=== PATIENT | female | born 1955 | race Caucasian/White ===

== ENCOUNTER 2021-06-24 07:55 | Emergency (ER) | payer OTHER ==
--- OUTSIDE RECORDS SUMMARY | 2021-06-24 07:58 | XMS REPORT | Continuity of Care Document ---
:1955 Author Organization [facility] t Address [address] [place] [address] Dr. Garcia [address] [place] [id number] Care Team Providers Name Role Phone Unavailable Unavailable Unavailable Problems This patient has no known problems. Allergies, Adverse Reactions, Alerts This patient has no known allergies or adverse reactions. Medications This patient has no known medications. Procedures This patient has no known procedures. Results This patient has no known results.
[2021-06-24 08:56] LABS: Absolute Lymphocytes (CBC) 1.3 K/uL (0.7-4.9); Basophils % 0.6 % (0-1.3); Hematocrit 38.3 % (36.0-45.0); Lymphocytes % 14.7 % (15.3-44.8); MPV 7.5 fL (7.6-11.3); RBC Red Blood Cell Count 4.39 M/uL (3.86-4.86)
--- NOTE | 2021-06-24 09:19 | RAD REPORT ---
EXAM DESCRIPTION: RAD - Hip Left 2 View - 06/24/2021 9:11 am CLINICAL HISTORY: Left hip pain FINDINGS: No fracture or dislocation is seen. If the patient continues have symptoms to suggest an occult fracture MRI would be recommended
[2021-06-24 09:21] LABS: Albumin 3.6 g/dL (3.4-5.0); Bilirubin Total 0.5 mg/dL (0.2-1.0); Potassium 3.7 mmol/L (3.5-5.1); Protein, Total 7.7 g/dL (6.4-8.2)
[2021-06-24] MEDS ORDERED: MORPHINE 4 MG/ML SYR ONE (09:29)
[2021-06-24] MEDS ORDERED: NA CHLORIDE 0.9% 500 ML ONE (09:29)
[2021-06-24] MEDS ORDERED: ONDANSETRON 4 MG/2 ML VIAL ONE (09:29)
--- NOTE | 2021-06-24 11:57 | RAD REPORT ---
EXAM DESCRIPTION: CT - Pelvis Wo Cont - 06/24/2021 11:29 am CLINICAL HISTORY: Left hip pain status post fall COMPARISON: June 24, 2021 x-ray TECHNIQUE: Computed axial tomography of the pelvis was obtained. Coronal and sagittal reconstruction performed All CT scans are performed using dose optimization technique as appropriate and may include automated exposure control or mA/KV adjustment according to patient size. FINDINGS: Nondisplaced fracture left inferior pubic ramus. Nondisplaced fracture left superior pubic ramus near acetabulum No dislocation No significant hip joint effusion IMPRESSION: Nondisplaced fracture left inferior pubic ramus. Nondisplaced fracture left superior pubic ramus near acetabulum
--- NOTE | 2021-06-24 12:34 | EDPHYS ---
Physician Documentation [facility] Name: Mago Marrufo Age: 65 yrs Sex: Female : 1955 Arrival Date: 06/24/2021 Time: 08:10 Bed 20 Private MD: ED Physician Bhavik Hogan HPI: 06/24 08:25 This 65 yrs old Female presents to ER via EMS with complaints of Fall Injury, pm1 Hip Pain. 08:25 Details of fall: The patient fell from an upright position, while standing, On top of a pm1 5 gallon bucket, and struck a concrete surface. Onset: The symptoms/episode began/occurred 4 hour(s) ago. Associated injuries: The patient sustained Left hip, painful injury. Severity of symptoms: in the emergency department the symptoms are unchanged. The patient has not experienced similar symptoms in the past. The patient has not recently seen a physician. Patient was standing on top of a 5 gallon bucket in the garage and fell onto her left hip. Patient reports inability to stand up after the fall due to the left hip pain. No headache, head injury, neck pain, or LOC. Patient reports having to crawl on the floor for about 4 hours until she was able to get to a phone to call the EMS for help. - Code Status:: Full code. - Family history: is not pertinent. - Immunization history:: Adult Immunizations up to date. - Immunization history: Last tetanus immunization: - up to date. - Social history:: Smoking status: Patient/guardian denies using tobacco, the patient reports quitting approximately 8 years ago. - Social history: Denies using street drugs, IV drugs, tobacco products, alcohol. ROS: 08:25 Constitutional: Negative for fever, chills, and weight loss, Cardiovascular: Negative pm1 for chest pain, palpitations, and edema, Respiratory: Negative for shortness of breath, cough, wheezing, and pleuritic chest pain, Abdomen/GI: Negative for abdominal pain, nausea, vomiting, diarrhea, and constipation, Back: Negative for injury and pain. 08:25 Skin: Negative for injury, rash, and discoloration, Neuro: Negative for headache, weakness, numbness, tingling, and seizure. 08:25 MS/extremity: Positive for pain, of the left hip and left inner thigh, Negative for deformity. 08:25 All other systems are negative. Exam: 08:25 Constitutional: This is a well developed, well nourished patient who is awake, alert, pm1 and in no acute distress. Head/Face: Normocephalic, atraumatic. 08:25 Back: No spinal tenderness. No costovertebral tenderness. Full range of motion. Skin: Warm, dry with normal turgor. Normal color with no rashes, no lesions, and no evidence of cellulitis. 08:25 Eyes: Exam is negative for acute changes, Extraocular movements: intact throughout, Sclera: no acute changes, icterus, is not appreciated. 08:25 ENT: External ear(s): are unremarkable, Ear canal(s): no acute changes, TM's: no acute changes. 08:25 Neck: External neck: no acute changes, C-spine: vertebral tenderness, is not appreciated, ROM/movement: no acute changes. 08:25 Chest/axilla: Inspection: normal, Palpation: is normal, no crepitus, no tenderness. 08:25 Cardiovascular: Rate: normal, Rhythm: regular, Pulses: no pulse deficits are appreciated. 08:25 Respiratory: Exam negative for acute changes, respiratory distress, shortness of breath, Breath sounds: are clear throughout. 08:25 Musculoskeletal/extremity: Extremities: grossly normal except: noted in the Left inguinal area and left lateral hip: pain, tenderness, There is no evidence of decreased ROM, deformity, Pulses: noted to be 2+ in the right dorsalis pedis artery and left dorsalis pedis artery, the left foot Sensation intact. 08:25 Neuro: Exam negative for acute changes, Orientation: is normal, Mentation: is normal, Motor: is normal, moves all fours, Sensation: is normal, no obvious gross deficits. Vital Signs: 08:18 BP 140 / 67; Pulse 85; Resp 16; Temp 97.4; Pulse Ox 100% on R/A; jb4 10:30 BP 107 / 60; Pulse 70; Resp 20; Pulse Ox 99% on R/A; kh1 [place]laly Coma Score: 08:15 Eye Response: spontaneous(4). Verbal Response: oriented(5). Motor Response: obeys jb4 commands(6). Total: 15. Trauma Score (Adult): 08:15 Eye Response: spontaneous(1); Verbal Response: oriented(1); Motor Response: obeys jb4 commands(2); Systolic BP: > 89 mm Hg(4); Respiratory Rate: 10 to 29 per min(4); Citlaly Score: 15; Trauma Score: 12 MDM: 08:11 Patient medically screened. pm1 10:55 ED course: Patient with passive range of motion intact to left hip with pain. Patient pm1 does not feel she would be able to apply weight on left leg, therefore will order CT left hip to rule out occult fracture by x-ray. 12:08 Data reviewed: radiologic studies, CT scan, I have discussed the patient's pm1 presentation/case with the attending Emergency Department Physician; and as a result, I will Stable fracture therefore will discuss with patient the results for discharge or admission. Will trial patient with walker or crutches per patient preference. 12:30 ED course: Patient able to ambulate with walker. Patient does not want to stay in pm1 hospital and would prefer to go home. Since patient is able to ambulate with walker will discharge the patient home for follow-up with Orthopedics. 12:37 ED course: BRAKE OPERATOR HEAVY DUTY aware reviewed. pm1 04 08:20 Order name: CBC with Diff; Complete Time: 09:29 pm1 06/24 08:20 Order name: CMP; Complete Time: 09:29 pm1 06/24 08:20 Order name: CPK; Complete Time: 09:29 pm1 06/24 08:20 Order name: Hip Left 2 View XRAY; Complete Time: 09:29 pm1 06/24 10:55 Order name: Pelvis Wo Cont; Complete Time: 11:58 EDMS 06/24 08:20 Order name: IV Saline Lock; Complete Time: 09:17 pm1 06/24 13:20 Order name: Misc. Order: Walker pm1 Administered Medications: 09:16 Drug: NS 0.9% 500 ml Volume: 500 ml; Route: IV; Rate: 1 bolus; Site: right antecubital; jb4 09:17 Drug: morphine 4 mg Route: IVP; Site: right antecubital; jb4 09:17 Drug: Zofran (Ondansetron) 4 mg Route: IVP; Site: right antecubital; jb4 12:40 Drug: morphine 2 mg Route: IVP; Site: right forearm; kh1 Disposition Summary: 06/24/21 12:33 Discharge Ordered Location: Home pm1 Problem: new pm1 Symptoms: have improved pm1 Condition: Stable pm1 Diagnosis - Nondisplaced fracture of left inferior pubic ramus pm1 - Nondisplaced fracture left superior pubic ramus pm1 Followup: pm1 - With: Emergency Department - When: As needed - Reason: Worsening of condition Followup: pm1 - With: Private Physician - When: 2 - 3 days - Reason: Recheck today's complaints, Continuance of care, Re-evaluation by your physician Discharge Instructions: - Discharge Summary Sheet pm1 - Fall Prevention in the Home, Adult pm1 - Simple Pelvic Fracture, Adult pm1 Forms: - Medication Reconciliation Form pm1 - Thank You Letter pm1 - Antibiotic Education pm1 - Prescription Opioid Use pm1 Prescriptions: - acetaminophen-codeine 300-15 mg Oral tablet - take 1 tablet by ORAL route every 6 hours As needed; 20 tablet; Refills: 0, pm1 Product Selection Permitted Addendum: 06/26/2021 15:09 Co-signature as Attending Physician, Bhavik Hogan MD I agree with the assessment and c torres plan of care. Signatures: Dispatcher [employer] EDBhavik Mason MD MD cha Marinas, Patrick, HUMAN RESOURCES ANALYST HUMAN RESOURCES ANALYST pm1 Vivek Saez, GABRIELLE RN Sofy Caldwell formerly [facility] Corrections: (The following items were deleted from the chart) 06/24 10:55 10:51 CT LEFT HIP WO CONTRAST ordered. EDAL EDAL
--- NOTE | 2021-06-24 12:34 | ER ---
Nurse's Notes [facility] Name: Mago Marrufo Age: 65 yrs Sex: Female : 1955 Arrival Date: 06/24/2021 Time: 08:10 Bed 20 Private MD: Diagnosis: Nondisplaced fracture of left inferior pubic ramus;Nondisplaced fracture left superior pubic ramus Presentation: 06/24 08:10 Chief complaint: Patient states: fell last night about 2300. states was not able to jb4 bear weight on left side denies hitting head. denies loc. c/o left hip pain no deformity noted. Care prior to arrival: None. Mechanism of Injury: Fall from standing position. 08:10 Acuity: PAGE 4 jb4 08:10 Method Of Arrival: EMS: [facility] jb4 08:22 Coronavirus screen: Vaccine status: Patient reports receiving the 2nd dose of the covid jb4 vaccine. 3 months ago Client denies travel out of the [place] in the last 14 days. Ebola Screen: No symptoms or risks identified at this time. Initial Sepsis Screen: Does the patient meet any 2 criteria? No. Patient's initial sepsis screen is negative. Risk Assessment: Do you want to hurt yourself or someone else? Patient reports no desire to harm self or others. 09:04 Acuity: PAGE 3 iw 13:30 Initial Sepsis Screen: Does the patient have a suspected source of infection? No. kh1 Patient's initial sepsis screen is negative. Triage Assessment: 08:22 General: Appears in no apparent distress. jb4 - Code Status:: Full code. - Family history: is not pertinent. - Immunization history:: Adult Immunizations up to date. - Immunization history: Last tetanus immunization: - up to date. - Social history:: Smoking status: Patient/guardian denies using tobacco, the patient reports quitting approximately 8 years ago. - Social history: Denies using street drugs, IV drugs, tobacco products, alcohol. Screenin:15 Abuse screen: Denies threats or abuse. Tuberculosis screening: No symptoms or risk jb4 factors identified. 08:22 Nutritional screening: No deficits noted. Fall risk At risk due to injury, age, jb4 immobility, prior history of falls. Exposure risk/Travel Screening: None identified. Primary Survey: 08:15 NO uncontrolled hemorrhage observed. A: The patient is alert. Breathing/Chest: jb4 Respiratory pattern:. 08:21 A: Airway: patent. Circulation: Cardiac rhythm: sinus rhythm. Disability Alert. jb4 Reassessment Disability. 08:22 Reassessment Breathing/Chest Respiratory pattern Regular. jb4 08:24 Exposure/Environment: All clothing and personal items were removed. Forensic evidence jb4 collection is not deemed to be indicated at this time. Items placed in patient belonging bag. Assessment: 08:15 General: Appears in no apparent distress. Behavior is calm, cooperative. Pain: jb4 Complains of pain in pelvis. Pain: Complains of pain in left hip area. Neuro: No deficits noted. EENT: No deficits noted. Cardiovascular: No deficits noted. Respiratory: No deficits noted. Musculoskeletal: No deficits noted. 09:17 Reassessment: Patient appears in no apparent distress at this time. No changes from jb4 previously documented assessment. Patient and/or family updated on plan of care and expected duration. Pain level reassessed. Patient is alert, oriented x 3, equal unlabored respirations, skin warm/dry/pink. 09:52 Reassessment: Pt placed on bedpan. Tolerated well.. ch5 10:30 Reassessment: Patient appears in no apparent distress at this time. No changes from 1 previously documented assessment. Patient and/or family updated on plan of care and expected duration. Pain level reassessed. Patient is alert, oriented x 3, equal unlabored respirations, skin warm/dry/pink. Vital Signs: 08:18 BP 140 / 67; Pulse 85; Resp 16; Temp 97.4; Pulse Ox 100% on R/A; jb4 10:30 BP 107 / 60; Pulse 70; Resp 20; Pulse Ox 99% on R/A; kh1 [place] Coma Score: 08:15 Eye Response: spontaneous(4). Verbal Response: oriented(5). Motor Response: obeys jb4 commands(6). Total: 15. Trauma Score (Adult): 08:15 Eye Response: spontaneous(1); Verbal Response: oriented(1); Motor Response: obeys jb4 commands(2); Systolic BP: > 89 mm Hg(4); Respiratory Rate: 10 to 29 per min(4); Citlaly Score: 15; Trauma Score: 12 ED Course: 08:10 Patient arrived in ED. em1 08:10 Vivek Saez, RN is Primary Nurse. jb4 08:11 Niraj Dodd NP is PHCP. pm1 08:11 Bhavik Hogan MD is Attending Physician. pm1 08:15 Triage completed. jb4 08:15 Patient has correct armband on for positive identification. Fall risk band placed. Bed jb4 in low position. Call light in reach. Side rails up X 1. Adult w/ patient. 08:21 No provider procedures requiring assistance completed. jb4 09:11 Hip Left 2 View XRAY In Process Unspecified. EDMS 09:16 CMP Sent. jb4 09:17 CPK Sent. jb4 11:29 Pelvis Wo Cont In Process Unspecified. EDMS Administered Medications: 09:16 Drug: NS 0.9% 500 ml Volume: 500 ml; Route: IV; Rate: 1 bolus; Site: right antecubital; jb4 09:17 Drug: morphine 4 mg Route: IVP; Site: right antecubital; jb4 09:17 Drug: Zofran (Ondansetron) 4 mg Route: IVP; Site: right antecubital; jb4 12:40 Drug: morphine 2 mg Route: IVP; Site: right forearm; kh1 Outcome: 12:33 Discharge ordered by . pm1 13:31 Patient left the ED. kh1 Signatures: Dispatcher [employer] EDMS Danay Schwartz, RN Junaid Estrada em1 Niraj Dodd NP FABRIC MACHINE OPERATOR pm1 Vivek Saez, Sofy Farfan RN kh1 Jaiden Guevara RN RN ch5
[2021-06-24] MEDS ORDERED: MORPHINE 2 MG/ML SYR ONE (12:43)
[2021-06-24 13:36] VITALS: TEMP 97.4
[2021-06-24 13:37] VITALS: BP 107/60; O2SAT 99
== END 2021-06-24 13:31 | disposition home or self-care (01) ==
LOC: ER 07:55
DX: S32.592A Other specified fracture of left pubis, initial encounter for closed fracture (principal); W17.89XA Other fall from one level to another, initial encounter
CPT/HCPCS: 85025; 36415; 82550; 80053; 72192; 73502; 99284; J2270; J7040; J2405